=== PATIENT | male | born 1970 | race Caucasian/White ===

== ENCOUNTER 2016-10-17 15:21 | Emergency (ER) | payer MEDICAID ==
[~2016-10-17] VITALS: Ht 185.4 cm; Wt 109.7 kg
[2016-10-17 15:28] VITALS: BP 139/86
== END 2016-10-17 16:00 | disposition home or self-care (01) ==
LOC: ED 15:54
DX: H10.021 Other mucopurulent conjunctivitis, right eye (principal)
CPT/HCPCS: 99283

== ENCOUNTER 2016-10-20 15:35 | Emergency (ER) | payer MEDICAID ==
[~2016-10-20] VITALS: Ht 185.4 cm; Wt 109.5 kg
[2016-10-20 15:38] VITALS: BP 138/89
[2016-10-20] MEDS ORDERED: FAMOTIDINE 20 MG TABLET PO ONE (16:00)
[2016-10-20] MEDS ORDERED: DIPHENHYDRAMINE 50 MG/ML, 1ML IM ONE (16:00)
[2016-10-20] MEDS ORDERED: FAMOTIDINE 20 MG TABLET ONE (16:16)
[2016-10-20] MEDS ORDERED: DIPHENHYDRAMINE 50 MG/ML, 1ML ONE (16:17)
== END 2016-10-20 17:41 | disposition home or self-care (01) ==
LOC: ED 17:15
DX: T78.40XA Allergy, unspecified, initial encounter (principal); L27.0 Generalized skin eruption due to drugs and medicaments taken internally
CPT/HCPCS: 99284; J7512; Q0177

== ENCOUNTER 2016-11-08 05:47 | Emergency (ER) | payer MEDICAID ==
[~2016-11-08] VITALS: Ht 185.4 cm; Wt 109.1 kg
[2016-11-08 05:48] VITALS: BP 150/92
[2016-11-08] MEDS ORDERED: FAMOTIDINE 20 MG TABLET ONE (06:18)
[2016-11-08] MEDS ORDERED: DIPHENHYDRAMINE 50 MG/ML, 1ML ONE (06:18)
[2016-11-08] MEDS ORDERED: DIPHENHYDRAMINE 50 MG/ML, 1ML IM ONE (06:30)
[2016-11-08] MEDS ORDERED: FAMOTIDINE 20 MG TABLET PO ONE (06:30)
== END 2016-11-08 07:20 | disposition home or self-care (01) ==
LOC: ED 06:29
DX: L50.0 Allergic urticaria (principal); L20.9 Atopic dermatitis, unspecified; L24.9 Irritant contact dermatitis, unspecified cause; F17.210 Nicotine dependence, cigarettes, uncomplicated
CPT/HCPCS: 96372; 99283; J1200; J7512

== ENCOUNTER 2016-12-13 11:00 | Emergency (ER) | payer MEDICAID ==
[~2016-12-13] VITALS: Ht 185.4 cm; Wt 107.0 kg
[2016-12-13] MEDS ORDERED: SODIUM CHLORIDE 0.9% 1,000ML IVBOLUS ONE (12:00)
[2016-12-13] MEDS ORDERED: MECLIZINE CHEWABLE 25 MG TAB PO ONE (12:00)
[2016-12-13 12:09] LABS: DAU SCREEN DISCLAIMER
[2016-12-13 12:21] LABS: ASPARTATE AMINO TRANSFERASE 20 U/L (15-37); BLOOD UREA NITROGEN 11 mg/dL (7-18)
[2016-12-13] MEDS ORDERED: MECLIZINE CHEWABLE 25 MG TAB ONE (12:31)
[2016-12-13] MEDS ORDERED: IBUPROFEN 200 MG TABLET ONE (13:14)
[2016-12-13] MEDS ORDERED: IBUPROFEN 200 MG TABLET PO ONE (13:30)
[2016-12-13 13:31] VITALS: BP 130/85
== END 2016-12-13 14:29 | disposition home or self-care (01) ==
LOC: ED 12:14
DX: R42 Dizziness and giddiness (principal)
CPT/HCPCS: 36415; 70450; 71010; 80053; 80307; 81003; 85025; 85610; 93005; 96360; 99285; J7030